=== PATIENT | female | born 1945 ===

== ENCOUNTER 2022-03-27 07:55 | Outpatient (CLI) | payer OTHER ==
[2022-03-27] MEDS ORDERED: TENORMIN50 M1 PO (08:50)
[2022-03-27] MEDS ORDERED: NORVASC2.5 M1 PO (08:50)
== END 2022-03-27 15:48 | disposition home or self-care (01) ==
LOC: LAB 07:55
PROVIDERS: ATTEND Orthopaedic Surgery Sports Medicine
DX: D68.9 Coagulation defect, unspecified (principal); Z20.828 Contact with and (suspected) exposure to other viral communicable diseases

== ENCOUNTER → 2022-03-27 08:00 | Outpatient (CLI) | payer OTHER ==
[~2022-03-27] VITALS: Ht 157.5 cm; Wt 80.7 kg
[~2022-03-27 08:00] MED LIST: NORVASC2.5 M1 PO; TENORMIN50 M1 PO
== END | disposition home or self-care (01) ==
LOC: EDUNIT# 07:30 → LAB 08:00 → SURG 03-31 07:00 → EDSTATUS 03-31 07:30 → SURG 03-31 07:30
PROVIDERS: ATTEND Orthopaedic Surgery Sports Medicine
DX: D68.9 Coagulation defect, unspecified (principal); Z20.828 Contact with and (suspected) exposure to other viral communicable diseases